=== PATIENT | female | born 1975 ===

== ENCOUNTER 2018-07-04 16:12 | Outpatient (REF) | payer BC, SELFPAY ==
[2018-07-04 20:39] LABS: Anion Gap 8.3 mmol/L (3-11); BUN 14 mg/dL (7-18); CO2 27.7 mmol/L (21.0-32.0); CREATININE 0.79 mg/dL (0.55-1.02); Calcium 8.8 mg/dL (8.5-10.1); Chloride 102 mmol/L (98-107); Glucose 90 mg/dL (70-100); Potassium 3.9 mmol/L (3.5-5.1); Sodium 138 mmol/L (136-145)
== END 2018-07-04 16:32 ==
LOC: LBN 16:12
PROVIDERS: Visit Provider Nurse Practitioner Family
DX: I10 Essential (primary) hypertension (principal); L02.412 Cutaneous abscess of left axilla
CPT/HCPCS: 80048; 87070; 87205

== ENCOUNTER 2019-12-22 12:08 | Outpatient (REF) | payer BC, SELFPAY ==
[2019-12-22 19:41] LABS: Anion Gap 11.1 mmol/L (3-11); BUN 8 mg/dL (7-18); CO2 24.9 mmol/L (21.0-32.0); CREATININE 0.73 mg/dL (0.55-1.02); Calcium 8.7 mg/dL (8.5-10.1); Chloride 104 mmol/L (98-107); Glucose 78 mg/dL (74-106); Potassium 4.2 mmol/L (3.5-5.1); Sodium 140 mmol/L (136-145)
== END 2019-12-22 12:28 ==
LOC: NCHCN 12:08
PROVIDERS: Visit Provider Family Medicine
DX: I10 Essential (primary) hypertension (principal)
CPT/HCPCS: 80048

== ENCOUNTER 2019-12-25 22:30 | Outpatient (REF) | payer BC, SELFPAY | END 2019-12-25 22:50 | LOC: NCHCN 22:30 | PROVIDERS: Visit Provider Family Medicine | DX: L72.0 Epidermal cyst (principal) | CPT/HCPCS: 87070; 87205 ==

== ENCOUNTER 2020-01-08 10:15 | Outpatient (REF) | payer BC, SELFPAY ==
[2020-01-08 21:01] LABS: Anion Gap 8.9 mmol/L (3-11); BUN 10 mg/dL (7-18); CO2 28.1 mmol/L (21.0-32.0); CREATININE 0.72 mg/dL (0.55-1.02); Calcium 9.2 mg/dL (8.5-10.1); Chloride 101 mmol/L (98-107); Glucose 78 mg/dL (74-106); Sodium 138 mmol/L (136-145)
== END 2020-01-08 10:35 ==
LOC: NCHCN 10:15
PROVIDERS: Visit Provider Family Medicine
DX: I10 Essential (primary) hypertension (principal)
CPT/HCPCS: 80048

== ENCOUNTER 2020-02-05 15:17 | Outpatient (REF) | payer BC, SELFPAY ==
--- NOTE | 2020-02-05 14:10 | SOFT_PTH ---
PATIENT: ZEESHAN ZAFAR LOC: [facility] U#:[id number] AGE/SX: 45/F ROOM: RE02/05/[address]: Rosa Zuñiga : 1975 BED: DIS: 02/05/2020 SPEC #: [id number] RECD: 02/05/20 15:28 STATUS: MAY RECarolyn #: [id number] FACUNDO: 02/05/20 14:[address]: Rosa Zuñiga DEPT: Surgical Specimen RECD BY: Dina Cunningham ENTERED: 02/05/20 15:29 SP TYPE: SOFT OTHR DR: Imelda Ortega Tissues: 1 - SOFT TISSUE MISC (INC. LIPOMA) Procedures: GROSS AND MICRO LEVEL 3 Comments: [id number]
== END 2020-02-05 15:37 ==
LOC: LBN 15:17
PROVIDERS: PCP Nurse Practitioner Family; Visit Provider Surgery
DX: L72.8 Other follicular cysts of the skin and subcutaneous tissue (principal); L90.5 Scar conditions and fibrosis of skin
CPT/HCPCS: 88304; 88305

== ENCOUNTER 2020-02-12 10:37 | Outpatient (REF) | payer BC, SELFPAY ==
[2020-02-12 21:32] LABS: BUN 10 mg/dL (7-18); CREATININE 0.73 mg/dL (0.55-1.02); Calcium 9.2 mg/dL (8.5-10.1); Calculated LDL 122 mg/dL (<100); Chloride 104 mmol/L (98-107); Cholesterol 202 mg/dL (<200); Glucose 79 mg/dL (74-106); HDL Cholesterol 59 mg/dL (40-60); Potassium 4.6 mmol/L (3.5-5.1); Sodium 137 mmol/L (136-145); Triglyceride 106 mg/dL (<150)
== END 2020-02-12 10:57 ==
LOC: NCHCN 10:37
PROVIDERS: PCP Nurse Practitioner Family; Visit Provider Nurse Practitioner Family
DX: I10 Essential (primary) hypertension (principal); Z13.220 Encounter for screening for lipoid disorders
CPT/HCPCS: 80048; 80061